=== PATIENT | male | born 1945 | race African-American/Black ===

== ENCOUNTER 2021-05-13 10:34 | Outpatient (CLI) | payer OTHER ==
[~2021-05-13] VITALS: Ht 154.9 cm; Wt 54.4 kg
== END 2021-05-13 19:03 | disposition home or self-care (01) ==
LOC: INF 10:34
PROVIDERS: ATTEND Family Medicine
DX: Z23 Encounter for immunization (principal); U07.1 COVID-19
CPT/HCPCS: 96365; Q0239; Q0245